=== PATIENT | female | born 1935 | race Caucasian/White ===

== ENCOUNTER → 2016-10-09 | Outpatient (CLI) | payer MEDICARE, OTHER ==
[~2016-10-09] MED LIST: ACET325T14 PO; ACLI400A2 INH; ALBU8.5H5 INH; CEFU500T PO; FERR325T35 PO; GLIP1TAB5 PO; HYDR-3240 PO; LINA5TAB PO; LISI1TAB5 PO; NAPR220C2 PO; POTA5TAB2 PO; PRED10TA PO; RIVA15TA PO; RIVA20TA PO; SIMV40TA3 PO; TEMA15CA6 PO
== END | disposition home or self-care (01) ==
LOC: CFH 04:15
PROVIDERS: ATTEND Internal Medicine Hematology & Oncology
DX: Z12.31 Encounter for screening mammogram for malignant neoplasm of breast (principal); C91.10 Chronic lymphocytic leukemia of B-cell type not having achieved remission
CPT/HCPCS: G0202

== ENCOUNTER → 2017-10-11 | Outpatient (CLI) | payer MEDICARE ==
[~2017-10-11] MED LIST changes: +FERR-46 PO; -FERR325T35 PO
== END | disposition home or self-care (01) ==
LOC: CFH 09:47
PROVIDERS: ATTEND Family Medicine
DX: Z12.31 Encounter for screening mammogram for malignant neoplasm of breast (principal)
CPT/HCPCS: 77067

== ENCOUNTER → 2018-06-19 | Outpatient (CLI) | payer MEDICARE | END | disposition home or self-care (01) | LOC: CFH 14:17 | PROVIDERS: ATTEND Family Medicine | DX: M85.88 Other specified disorders of bone density and structure, other site (principal); C91.10 Chronic lymphocytic leukemia of B-cell type not having achieved remission | CPT/HCPCS: 77080 ==

== ENCOUNTER 2019-12-31 17:28 | Inpatient (IN) | payer MEDICARE ==
[~2019-12-31] VITALS: Ht 157.5 cm; Wt 74.1 kg
[~2019-12-31 17:28] MED LIST changes: +ACID1GRA3 PO; -ACLI400A2 INH; +ACLI400A3 INH; +CEFD300C37 PO; +CLONAZEPAM PO; +LISI1TAB39 PO; -LISI1TAB5 PO; +METR500T PO; +ONDA4TAB7 PO; +PIPE3.375 IVPB; +SIMV40TA20 PO; -SIMV40TA3 PO
[2019-12-31] MEDS ORDERED: DILTIAZEM 5 MG/ML, 5ML IVPush ONE ×2 (18:00→22:00)
[2019-12-31] MEDS ORDERED: SODIUM CHLORIDE FLUSH 10ML SYR IVF ONE (18:00)
--- NOTE | 2019-12-31 18:01 | NUR ---
PT EPISODE AFIB RVR 16OS, PA AND MD IN ROOM. 2ND PIV EST LABS DRAWN PLAN TRANSFUSION, H/H LOW PER FACILITY PAPERWORK. PT ALERT BUT DROWSY, FORGETFUL. PALE. MAINTAINED ON 4LNC BASELINE COPD. DENIES CP/SOB. BACK TO SR 90S.
[2019-12-31] MEDS ORDERED: DILTIAZEM 5 MG/ML, 5ML ONE (18:05)
[2019-12-31 18:25] LABS: INTERNATIONAL NORMALIZED RATIO 1.01 (0.93-1.1); PROTHROMBIN TIME 10.4 Seconds (9.6-11.5)
[2019-12-31 18:28] LABS: ALBUMIN 2.4 g/dL (3.4-5.0); ANION GAP 8 mmol/L (5-15); CALCIUM 9.2 mg/dL (8.5-10.1); CHLORIDE 98 mmol/L (98-107); CREATININE 1.54 mg/dL (0.55-1.02)
[2019-12-31 18:32] LABS: ALANINE AMINOTRANSFERASE 7 U/L (12-78); ALKALINE PHOSPHATASE 31 U/L (45-117); BILIRUBIN,TOTAL 0.4 mg/dL (0.2-1.0); TOTAL PROTEIN 5.3 g/dL (6.4-8.2)
[2019-12-31 18:34] LABS: TROPONIN I 0.201 ng/mL (0.000-0.045)
[2019-12-31 18:41] LABS: MEAN CORPUSCULAR HEMOGLOBIN 29.5 pg (27.0-34.8); MEAN CORPUSCULAR HGB CONC 31.6 g/dL (32.4-35.8); MEAN CORPUSCULAR VOLUME 93.4 fL (80-100); MEAN PLATELET VOLUME 8.9 fL (7.4-10.4); PLATELET COUNT 330 x10^3/uL (130-400); RED BLOOD COUNT 2.35 x10^6/uL (3.82-5.3); RED CELL DISTRIBUTION WIDTH 19.8 % (9.6-15.2)
--- NOTE | 2019-12-31 19:01 | NUR ---
report to shun morrissey. as
--- NOTE | 2019-12-31 19:14 | NUR ---
BLOOD ORDERED FROM BLOOD BANK.
--- NOTE | 2019-12-31 19:24 | NUR ---
SPOKE WITH BLOOD BANK REGARDING PT BEING A POS AND THE BLOOD ORDERED IS A POS AND A NEG. BB STATES THEY HAVE AND A NEG EXPIRING AND IT IS SAFE TO ADMIN THE A NEGATIVE BLOOD. MADE AWARE.
[2019-12-31 19:33] LABS: MD YES
[2019-12-31 19:46] VITALS: BP 117/41
[2019-12-31 19:54] LABS: BAND#(MANUAL) 0.34 x10^3/uL; BANDS%(MANUAL) 1 % (0-7); LYMPH#(MANUAL) 26.44 x10^3/uL (1-3.4); LYMPHS% (MANUAL) 78 % (22-44); MONOS#(MANUAL) 0.68 x10^3/uL (0.3-2.7); MONOS% (MANUAL) 2 % (2-9); SEG#(MANUAL) 6.44 x10^3/uL (1.8-6.8); SEGS% (MANUAL) 19 % (42-75)
[2019-12-31 19:59] LABS: <PLATELET ESTIMATE> ADEQUATE; <PLT MORPHOLOGY> NORMAL PLT MORPH
[2019-12-31 20:00] LABS: ANISOCYTOSIS 1+; POLYCHROMASIA 1+
[2019-12-31 20:03] VITALS: BP 123/41
[2019-12-31 20:11] LABS: SMUDGE CELLS 2+
[2019-12-31] MEDS ORDERED: OMNIPAQUE 350 MG/ML, 100ML BOTTLE ONE (21:23)
--- NOTE | 2019-12-31 21:58 | NUR ---
PT HAD 2 EPISODES OF INCREASED HR UP TO 140-160. PT HR SLOWED BYSELF WHILE IN ROOM. MD MADE AWARE. UPON RETURNING TO THE ROOM HR WAS AGAIN 140-160 AFIB RVR. MD MADE AWARE. ORDER FOR 10 MG CARDIZEM IV GIVEN.
[2019-12-31] MEDS ORDERED: SODIUM CHLORIDE 0.9% 1,000 ML IV ONE (22:02)
[2019-12-31 22:05] VITALS: BP 125/74
--- NOTE | 2019-12-31 22:06 | NUR ---
END OF INFUSION FOR 1ST UNIT. REPORT TO SARATH AWAD. PT RESTING COMFORTABLY AFTER MEDICATION. MD IS AWARE. SON REMAINS AT BEDSIDE.
[2019-12-31] MEDS ORDERED: SODIUM CHLORIDE FLUSH 10ML SYR IVF PRN (22:30)
--- NOTE | 2019-12-31 22:40 | NUR ---
ASSISTED PT UP TO BSC. PT VOIDED LARGE AMOUNT OF URINE AND HAD SMALL AMOUNT BLACK TARRY STOOL. HYGIENE PROVIDED, LINEN CHANGE DONE.
--- NOTE | 2019-12-31 22:58 | NUR ---
[employer]IVE [employer] ADVISOR IN TO SEE PT FOR ADMITTING MD. Addendum: 12/31/19 at 2259 by VIRALON PT Polly&ILEANA, ANSWERING QUESTIONS APPROPRIATELY.
[2019-12-31 23:00] VITALS: BP 100/52
[2019-12-31] MEDS ORDERED: PIPERACILLIN/TAZO/PMX 3.375GM 50 ML IV SCH (23:00)
[2019-12-31] MEDS ORDERED: VANCOMYCIN PER PHARMACY MC PRN (23:00)
--- NOTE | 2019-12-31 23:09 | NUR ---
2ND UNIT PRBCs TRANSFUSING, PT TOLERATING WELL. SON AT BS.
[2019-12-31 23:15] VITALS: BP 119/44
[2019-12-31] MEDS ORDERED: PANTOPRAZOLE 80 MG in SODIUM CHLORIDE 0.9% 50 ML IV ONE (23:30)
[2019-12-31] MEDS ORDERED: BISACODYL 10 MG SUPP PR PRN (23:30)
--- NOTE | 2019-12-31 23:50 | NUR ---
PT TRANSPORTED UPSTAIRS WITH RN & TECH WITH 2ND UNIT PRBC STILL TRANSFUSING, NO S/S OF TRANSFUSION REACTION. REPORTED TO ROEL AWAD.
[2020-01-01 00:07] VITALS: BP 133/67
[2020-01-01] MEDS: ACLIDINIUM BROMIDE 400 MCG INH SCH ×3 (00:16→21:00)
[2020-01-01] MEDS: PANTOPRAZOLE 80 MG in SODIUM CHLORIDE 0.9% 100 ML IV SCH ×3 (00:26→22:01)
[2020-01-01 00:45] LABS: TROPONIN I 0.232 ng/mL (0.000-0.045)
[2020-01-01 01:12] VITALS: BP 143/80
[2020-01-01] MEDS: NS + 20MEQ KCL 1,000 ML IV SCH ×2 (01:21→22:01)
[2020-01-01] MEDS: INSULIN LISPRO 100 UNITS/ML, PEN SQ-INSULIN SCH ×4 (01:21→22:02)
[2020-01-01 03:02] LABS: MICROSCOPIC INDICATED
[2020-01-01 03:25] LABS: MEAN CORPUSCULAR HEMOGLOBIN 30.2 pg (27.0-34.8); MEAN CORPUSCULAR HGB CONC 32.9 g/dL (32.4-35.8); MEAN CORPUSCULAR VOLUME 91.9 fL (80-100); MEAN PLATELET VOLUME 8.1 fL (7.4-10.4); PLATELET COUNT 274 x10^3/uL (130-400); RED BLOOD COUNT 3.25 x10^6/uL (3.82-5.3)
[2020-01-01 04:29] LABS: MD YES
[2020-01-01 04:31] LABS: LYMPH#(MANUAL) 28.31 x10^3/uL (1-3.4); LYMPHS% (MANUAL) 84 % (22-44); MONOS#(MANUAL) 0.67 x10^3/uL (0.3-2.7); MONOS% (MANUAL) 2 % (2-9); SEG#(MANUAL) 4.72 x10^3/uL (1.8-6.8); SEGS% (MANUAL) 14 % (42-75)
[2020-01-01 04:32] LABS: <PLATELET ESTIMATE> ADEQUATE; <PLT MORPHOLOGY> NORMAL PLT MORPH; ANISOCYTOSIS 1+; POLYCHROMASIA 1+
[2020-01-01] MEDS: LACTOBACILLUS 1GM/ PACKET PO SCH ×4 (06:00→22:01)
[2020-01-01 07:09] LABS: ANION GAP 7 mmol/L (5-15); CHLORIDE 103 mmol/L (98-107); CHOLESTEROL, TOTAL 111 mg/dL (140-239); CREATININE 1.21 mg/dL (0.55-1.02); TRIGLYCERIDES 103 mg/dL (50-200); VLDL CHOLESTEROL 21 mg/dL (0-25)
[2020-01-01 07:12] LABS: CHOL/HDL RATIO 2.4; HDL CHOL % 41 % (28-40); HDL CHOLESTEROL (DIRECT) 46 mg/dL (40-60); LDL CHOLESTEROL,CALCULATED 44 mg/dL (54-169); TROPONIN I 0.248 ng/mL (0.000-0.045)
[2020-01-01 09:50] VITALS: BP 135/65
[2020-01-01] MEDS ORDERED: CHLORHEXIDINE 15 ML UDC MM ONE (11:30)
[2020-01-01] MEDS ORDERED: PROPOFOL 10 MG/ML, 20ML ONE (12:11)
[2020-01-01] MEDS ORDERED: ESMOLOL 100 MG/10 ML ONE (12:11)
[2020-01-01] MEDS ORDERED: PROMETHAZINE 25 MG/ML, 1ML IV PRN (12:30)
[2020-01-01] MEDS ORDERED: OXYcodone 5 MG/5 ML ORAL.SOL UDC PO PRN (12:30)
[2020-01-01] MEDS ORDERED: hydrALAzine 20 MG/ML, 1ML IV PRN (12:30)
[2020-01-01] MEDS ORDERED: MEPERIDINE/PF 25MG/0.5ML IVPush PRN (12:30)
[2020-01-01] MEDS ORDERED: HYDROmorphone 2 MG/ML, 1ML IVPush PRN (12:30)
[2020-01-01] MEDS ORDERED: ACETAMINOPHEN 325 MG TABLET PO PRN (12:30)
[2020-01-01] MEDS ORDERED: FENTANYL PF 100 MCG/2ML IV PRN (12:30)
[2020-01-01] MEDS ORDERED: LABETALOL 5MG/ML, 20ML IV PRN (12:30)
[2020-01-01] MEDS ORDERED: ALBUTEROL SULFATE 2.5 MG/3 ML NPPB PRN (12:30)
[2020-01-01] MEDS ORDERED: DIAZEPAM 5 MG/ML, 2ML IVPush PRN (12:30)
[2020-01-01] MEDS ORDERED: LABETALOL 5MG/ML, 20ML ONE (13:12)
[2020-01-01 13:40] VITALS: BP 147/84
[2020-01-01 19:12] VITALS: BP 144/62
[2020-01-01] MEDS: SIMVASTATIN 40 MG TABLET PO SCH (22:02)
[2020-01-02 00:21] VITALS: BP 149/78
[2020-01-02] MEDS: INSULIN LISPRO 100 UNITS/ML, PEN SQ-INSULIN SCH ×4 (02:00→20:57)
[2020-01-02 05:16] LABS: ALBUMIN 2.4 g/dL (3.4-5.0); ANION GAP 6 mmol/L (5-15); CALCIUM 8.5 mg/dL (8.5-10.1); CHLORIDE 105 mmol/L (98-107); CREATININE 0.87 mg/dL (0.55-1.02)
[2020-01-02 05:21] LABS: TROPONIN I 0.185 ng/mL (0.000-0.045)
[2020-01-02 08:22] VITALS: BP 153/82
[2020-01-02] MEDS: PANTOPRAZOLE 80 MG in SODIUM CHLORIDE 0.9% 100 ML IV SCH ×2 (08:28→20:30)
[2020-01-02] MEDS: LACTOBACILLUS 1GM/ PACKET PO SCH ×4 (08:29→20:58)
[2020-01-02] MEDS: ACLIDINIUM BROMIDE 400 MCG INH SCH ×2 (08:30→20:54)
[2020-01-02] MEDS ORDERED: POTASSIUM CHLORIDE 40 MEQ in SODIUM CHLORIDE 0.9% 500 ML IV ONE (09:00)
[2020-01-02] MEDS ORDERED: LORazepam 2 MG/ML, 1ML ONE (12:09)
[2020-01-02] MEDS ORDERED: LORazepam 2 MG/ML, 1ML IVPush ONE (12:30)
[2020-01-02] MEDS: ONDANSETRON 2MG/ML, 2ML IVPush PRN (12:38)
[2020-01-02] MEDS ORDERED: ONDANSETRON ODT 4 MG ONE (12:38)
[2020-01-02] MEDS ORDERED: ADENOSINE 6 MG/2 ML IVPush ONE ×5 (13:00→16:00)
[2020-01-02] MEDS ORDERED: NITROGLYCERIN 0.4 MG/SPRAY SL PRN ×2 (13:00→22:30)
[2020-01-02] MEDS ORDERED: NITROGLYCERIN 0.4 MG BOTTLE (25 TABS) SL PRN (13:00)
[2020-01-02 13:14] VITALS: BP 152/82
[2020-01-02 15:14] VITALS: BP 170/88
[2020-01-02] MEDS ORDERED: METOPROLOL 1 MG/ML, 5ML IVPush ONE (16:00)
[2020-01-02] MEDS: NS + 20MEQ KCL 1,000 ML IV SCH (16:01)
[2020-01-02] MEDS: POTASSIUM CHLORIDE 20 MEQ PACKET PO SCH (18:09)
[2020-01-02] MEDS: METOPROLOL TARTRATE 25 MG TAB PO SCH (18:09)
[2020-01-02 20:33] VITALS: BP 98/67
[2020-01-02] MEDS: SIMVASTATIN 40 MG TABLET PO SCH (20:57)
[2020-01-02] MEDS ORDERED: DIGOXIN 0.25 MG/ML, 2ML IVPush ONE (21:00)
[2020-01-03 00:36] VITALS: BP 166/89
[2020-01-03] MEDS: INSULIN LISPRO 100 UNITS/ML, PEN SQ-INSULIN SCH ×4 (01:54→23:15)
[2020-01-03] MEDS: NS + 20MEQ KCL 1,000 ML IV SCH (01:59)
[2020-01-03] MEDS: LACTOBACILLUS 1GM/ PACKET PO SCH ×4 (06:00→21:00)
[2020-01-03] MEDS: PANTOPRAZOLE 80 MG in SODIUM CHLORIDE 0.9% 100 ML IV SCH ×2 (06:36→23:15)
[2020-01-03 06:37] LABS: MEAN CORPUSCULAR HEMOGLOBIN 30.1 pg (27.0-34.8); MEAN CORPUSCULAR HGB CONC 32.4 g/dL (32.4-35.8); MEAN CORPUSCULAR VOLUME 92.9 fL (80-100); MEAN PLATELET VOLUME 8.4 fL (7.4-10.4); PLATELET COUNT 298 x10^3/uL (130-400); RED BLOOD COUNT 3.43 x10^6/uL (3.82-5.3); RED CELL DISTRIBUTION WIDTH 17.2 % (9.6-15.2)
[2020-01-03] MEDS: METOPROLOL TARTRATE 25 MG TAB PO SCH ×4 (06:37→21:00)
[2020-01-03 06:46] LABS: ALBUMIN 2.5 g/dL (3.4-5.0); ANION GAP 6 mmol/L (5-15); CALCIUM 8.7 mg/dL (8.5-10.1); CHLORIDE 108 mmol/L (98-107)
[2020-01-03 06:47] LABS: CREATININE 0.73 mg/dL (0.55-1.02)
[2020-01-03] MEDS ORDERED: DIGOXIN 0.25 MG/ML, 2ML IVPush ONE (07:30)
[2020-01-03 07:33] VITALS: BP 161/82
[2020-01-03 07:51] LABS: MD YES
[2020-01-03] MEDS: POTASSIUM CHLORIDE 20 MEQ PACKET PO SCH (08:00)
[2020-01-03 08:55] LABS: ANISOCYTOSIS 1+; LYMPH#(MANUAL) 33.84 x10^3/uL (1-3.4); LYMPHS% (MANUAL) 80 % (22-44); MONOS#(MANUAL) 0.42 x10^3/uL (0.3-2.7); MONOS% (MANUAL) 1 % (2-9); POLYCHROMASIA 1+; SEG#(MANUAL) 8.04 x10^3/uL (1.8-6.8); SEGS% (MANUAL) 19 % (42-75)
[2020-01-03 08:56] LABS: SMUDGE CELLS 2+
[2020-01-03 08:57] LABS: <PLATELET ESTIMATE> ADEQUATE; <PLT MORPHOLOGY> NORMAL PLT MORPH
[2020-01-03] MEDS: ACLIDINIUM BROMIDE 400 MCG INH SCH ×2 (09:00→21:00)
[2020-01-03] MEDS ORDERED: ADENOSINE 6 MG/2 ML ONE (10:26)
[2020-01-03 13:18] VITALS: BP 157/87
[2020-01-03] MEDS: D5%-0.45NACL+KCL 20MEQ 1,000 ML IV SCH (15:24)
[2020-01-03] MEDS: SIMVASTATIN 40 MG TABLET PO SCH (21:00)
[2020-01-03 21:45] VITALS: BP 137/76
[2020-01-04] MEDS: D5%-0.45NACL+KCL 20MEQ 1,000 ML IV SCH (01:45)
[2020-01-04] MEDS: INSULIN LISPRO 100 UNITS/ML, PEN SQ-INSULIN SCH ×4 (02:08→22:08)
[2020-01-04 02:11] VITALS: BP 158/65
[2020-01-04] MEDS: METOPROLOL TARTRATE 25 MG TAB PO SCH ×2 (03:00→09:00)
[2020-01-04 05:18] LABS: ALBUMIN 2.3 g/dL (3.4-5.0); ANION GAP 4 mmol/L (5-15); CALCIUM 8.3 mg/dL (8.5-10.1); CHLORIDE 107 mmol/L (98-107); CREATININE 0.64 mg/dL (0.55-1.02)
[2020-01-04 05:31] LABS: MEAN CORPUSCULAR HEMOGLOBIN 30.1 pg (27.0-34.8); MEAN CORPUSCULAR HGB CONC 32.4 g/dL (32.4-35.8); MEAN CORPUSCULAR VOLUME 92.9 fL (80-100); MEAN PLATELET VOLUME 8.6 fL (7.4-10.4); PLATELET COUNT 283 x10^3/uL (130-400); RED BLOOD COUNT 3.22 x10^6/uL (3.82-5.3); RED CELL DISTRIBUTION WIDTH 17.7 % (9.6-15.2)
[2020-01-04] MEDS: LACTOBACILLUS 1GM/ PACKET PO SCH (05:54)
[2020-01-04 06:14] LABS: MD YES
[2020-01-04 06:15] LABS: <PLATELET ESTIMATE> ADEQUATE; <PLT MORPHOLOGY> NORMAL PLT MORPH; ANISOCYTOSIS 1+; EOS#(MANUAL) 0.73 x10^3/uL (0.0-0.4); EOS% (MANUAL) 2 % (1-7); LYMPH#(MANUAL) 28.11 x10^3/uL (1-3.4); LYMPHS% (MANUAL) 77 % (22-44); MONOS#(MANUAL) 1.46 x10^3/uL (0.3-2.7); MONOS% (MANUAL) 4 % (2-9); POLYCHROMASIA 1+; SEG#(MANUAL) 6.21 x10^3/uL (1.8-6.8); SEGS% (MANUAL) 17 % (42-75); SMUDGE CELLS 2+
[2020-01-04 07:42] VITALS: BP 129/74
[2020-01-04] MEDS: ACLIDINIUM BROMIDE 400 MCG INH SCH ×2 (09:00→21:02)
[2020-01-04] MEDS ORDERED: CALCIUM GLUCONATE 4.6 MEQ in SODIUM CHLORIDE 0.9% 100 ML IV ONE (10:30)
[2020-01-04] MEDS ORDERED: POTASSIUM PHOSPHATE 44 MEQ in SODIUM CHLORIDE 0.9% 500 ML IV ONE (10:30)
[2020-01-04] MEDS ORDERED: MAGNESIUM SULFATE PMX 2GM/50ML 50 ML IV ONE (10:30)
[2020-01-04 12:29] VITALS: BP_SYST 105; BP_SYST 144; BP_DIAS 50; BP_DIAS 78
[2020-01-04] MEDS ORDERED: VANCOMYCIN PER PHARMACY MC PRN (16:00)
[2020-01-04] MEDS ORDERED: PIPERACILLIN/TAZO/PMX 3.375GM 50 ML IV SCH (16:00)
[2020-01-04] MEDS: PANTOPRAZOLE 80 MG in SODIUM CHLORIDE 0.9% 100 ML IV SCH (18:37)
[2020-01-04] MEDS: SIMVASTATIN 40 MG TABLET PO SCH (19:53)
[2020-01-04 20:48] VITALS: BP 137/85
[2020-01-04] MEDS ORDERED: OMNIPAQUE 350 MG/ML, 150 ML BOTTLE ONE (23:07)
[2020-01-04] MEDS ORDERED: HEPARIN 25,000 UNITS/250ML PMX 250 ML IV PRN (23:30)
[2020-01-04] MEDS ORDERED: HEPARIN 5,000 UNITS/ML, 1ML IV ONE (23:30)
[2020-01-04] MEDS ORDERED: HEPARIN 5,000 UNITS/ML, 1ML IV PRN (23:30)
[2020-01-05] VITALS (7 sets, daily range): BP systolic 106–186; BP diastolic 68–94
[2020-01-05] MEDS: INSULIN LISPRO 100 UNITS/ML, PEN SQ-INSULIN SCH ×2 (01:50→08:49)
[2020-01-05] MEDS: D5%-0.45NACL+KCL 20MEQ 1,000 ML IV SCH ×3 (04:06→19:33)
[2020-01-05] MEDS: PANTOPRAZOLE 80 MG in SODIUM CHLORIDE 0.9% 100 ML IV SCH ×3 (04:12→22:32)
[2020-01-05] MEDS ORDERED: ADENOSINE 6 MG/2 ML IVPush ONE (05:30)
[2020-01-05 08:59] LABS: MEAN CORPUSCULAR HEMOGLOBIN 30.1 pg (27.0-34.8); MEAN CORPUSCULAR HGB CONC 32.3 g/dL (32.4-35.8); MEAN CORPUSCULAR VOLUME 93.1 fL (80-100); MEAN PLATELET VOLUME 8.4 fL (7.4-10.4); PLATELET COUNT 318 x10^3/uL (130-400); RED BLOOD COUNT 3.57 x10^6/uL (3.82-5.3)
[2020-01-05] MEDS: TIOTROPIUM BROMIDE 18 MCG/INH INH SCH (09:00)
[2020-01-05] MEDS: ACLIDINIUM BROMIDE 400 MCG INH SCH ×2 (09:00→19:32)
[2020-01-05 09:04] LABS: ALBUMIN 2.2 g/dL (3.4-5.0); ANION GAP 6 mmol/L (5-15); CALCIUM 8.5 mg/dL (8.5-10.1); CHLORIDE 107 mmol/L (98-107); CREATININE 0.64 mg/dL (0.55-1.02)
[2020-01-05 09:31] LABS: MD YES
[2020-01-05 11:45] LABS: BAND#(MANUAL) 0.43 x10^3/uL; BANDS%(MANUAL) 1 % (0-7); EOS#(MANUAL) 0.43 x10^3/uL (0.0-0.4); EOS% (MANUAL) 1 % (1-7); LYMPH#(MANUAL) 31.61 x10^3/uL (1-3.4); LYMPHS% (MANUAL) 73 % (22-44); MONOS#(MANUAL) 0.43 x10^3/uL (0.3-2.7); MONOS% (MANUAL) 1 % (2-9); SEG#(MANUAL) 10.39 x10^3/uL (1.8-6.8); SEGS% (MANUAL) 24 % (42-75); SMUDGE CELLS 2+
[2020-01-05 11:48] LABS: RED CELL DISTRIBUTION WIDTH 18.6 % (9.6-15.2)
[2020-01-05 11:49] LABS: <PLATELET ESTIMATE> ADEQUATE; <PLT MORPHOLOGY> NORMAL PLT MORPH; ANISOCYTOSIS 1+
[2020-01-05] MEDS ORDERED: ONDANSETRON 2MG/ML, 2ML IVPush PRN (15:00)
[2020-01-05] MEDS ORDERED: SCOPOLAMINE 1MG PATCH TD PRN (15:00)
[2020-01-05] MEDS ORDERED: ATROPINE OPHTH SOLN 1%, 5ML PO PRN (15:00)
[2020-01-05] MEDS: HYDROmorphone 1 MG/ML, 1ML INJ IV PRN (16:40)
[2020-01-05] MEDS: SIMVASTATIN 40 MG TABLET PO SCH (19:32)
[2020-01-05] MEDS: SODIUM CHLORIDE FLUSH 10ML SYR IVF SCH (20:20)
[2020-01-05] MEDS: LORazepam 2 MG/ML, 1ML IVPush PRN (20:20)
[2020-01-06] MEDS: TIOTROPIUM BROMIDE 18 MCG/INH INH SCH (09:00)
[2020-01-06] MEDS: ACLIDINIUM BROMIDE 400 MCG INH SCH ×2 (09:00→21:00)
[2020-01-06] MEDS: SODIUM CHLORIDE FLUSH 10ML SYR IVF SCH ×2 (10:18→21:29)
[2020-01-06] MEDS: HYDROmorphone 1 MG/ML, 1ML INJ IV PRN ×2 (10:18→17:39)
[2020-01-06] MEDS ORDERED: MORPHINE 30MG/30ML PCA.SYR IV PRN (11:00)
[2020-01-06] MEDS: LORazepam 2 MG/ML, 1ML IVPush PRN (12:12)
[2020-01-06] MEDS: SIMVASTATIN 40 MG TABLET PO SCH (21:00)
[2020-01-07] MEDS: LORazepam 2 MG/ML, 1ML IVPush PRN (01:30)
[2020-01-07] MEDS: HYDROmorphone 1 MG/ML, 1ML INJ IV PRN (06:41)
[2020-01-07] MEDS: TIOTROPIUM BROMIDE 18 MCG/INH INH SCH (09:20)
[2020-01-07] MEDS: ACLIDINIUM BROMIDE 400 MCG INH SCH ×2 (09:20→21:00)
[2020-01-07] MEDS ORDERED: HYDROmorphone PCA 30 MG/30 ML IV PRN (13:30)
[2020-01-07] MEDS: ONDANSETRON 2MG/ML, 2ML IVPush PRN (15:24)
[2020-01-07] MEDS ORDERED: HYDROmorphone 1 MG/ML, 1ML INJ IVPush PRN (15:30)
[2020-01-07] MEDS: SIMVASTATIN 40 MG TABLET PO SCH (21:00)
[2020-01-08] MEDS: ACLIDINIUM BROMIDE 400 MCG INH SCH (07:09)
[2020-01-08] MEDS: TIOTROPIUM BROMIDE 18 MCG/INH INH SCH (07:10)
== END 2020-01-08 10:40 | disposition expired | DRG 377 ==
LOC: ED 18:23 → EDIP 22:02 → 5SO 23:32 → 4NE 01-06
PROVIDERS: ADMIT Internal Medicine; ATTEND Internal Medicine
PROC: 30233N1 Transfusion of Nonautologous Red Blood Cells into Peripheral Vein, Percutaneous Approach (ICD-10-PCS; 2019-12-31)
PROC: 0DJ08ZZ Inspection of Upper Intestinal Tract, Via Natural or Artificial Opening Endoscopic (ICD-10-PCS; 2020-01-01)
PROC: 0T9B70Z Drainage of Bladder with Drainage Device, Via Natural or Artificial Opening (ICD-10-PCS; principal; 2020-01-01 13:00)
DX: K26.4 Chronic or unspecified duodenal ulcer with hemorrhage (principal); I21.A1 Myocardial infarction type 2; J18.9 Pneumonia, unspecified organism; N17.0 Acute kidney failure with tubular necrosis; C91.10 Chronic lymphocytic leukemia of B-cell type not having achieved remission; J96.10 Chronic respiratory failure, unspecified whether with hypoxia or hypercapnia; D62 Acute posthemorrhagic anemia; I47.1 Supraventricular tachycardia; J44.0 Chronic obstructive pulmonary disease with (acute) lower respiratory infection; K56.51 Intestinal adhesions [bands], with partial obstruction; E87.6 Hypokalemia; I10 Essential (primary) hypertension; J44.9 Chronic obstructive pulmonary disease, unspecified; I48.0 Paroxysmal atrial fibrillation; E11.9 Type 2 diabetes mellitus without complications; F03.90 Unspecified dementia, unspecified severity, without behavioral disturbance, psychotic disturbance, mood disturbance, and anxiety; I27.20 Pulmonary hypertension, unspecified; K52.9 Noninfective gastroenteritis and colitis, unspecified; Z51.5 Encounter for palliative care; Z80.6 Family history of leukemia; Z85.3 Personal history of malignant neoplasm of breast; Z86.711 Personal history of pulmonary embolism; Z87.442 Personal history of urinary calculi; Z99.81 Dependence on supplemental oxygen; Z03.818 Encounter for observation for suspected exposure to other biological agents ruled out
CPT/HCPCS: 36415; 71045; 71260; 74018; 74022; 74177; 80048; 80053; 80061; 80069; 80162; 81001; 82378; 82962; 83036; 83690; 83735; 83880; 84484; 85014; 85018; 85025; 85520; 85610; 85730; 86850; 86900; 86923; 87040; 87086; 87106; 87635; 93005; 93306; 99291; G0378; J0153; J0610; J1170; J1644; J2405; J2704; J3480; Q9967; C9113; J1160; J1815; J2060; J3475; J7040; P9016